=== PATIENT | male | born 1965 | race Caucasian/White ===

== ENCOUNTER 2017-04-25 14:01 | Emergency (ER) | payer SELFPAY ==
[~2017-04-25] VITALS: Ht 170.2 cm; Wt 77.1 kg
[2017-04-25 14:43] VITALS: BP 123/78
--- NOTE | 2017-04-25 14:46 | NUR ---
ROSSI IS 51 YO MALE BIB EMS FROM [facility] FOR POSSIBLE SEIZURE, AWAKE AND ALERT ON ARRIVAL. DENIES PAIN REFUSES CARE WANTS TO LEAVE.
[2017-04-25 14:48] VITALS: BP 123/78
--- NOTE | 2017-04-25 14:49 | NUR ---
PATIENT REFUSED CARE AND SIGNED DISCHARGE WITH ADVICE TO FOLLOW UP WITH PRIMARY MD.
== END 2017-04-25 14:49 | disposition home or self-care (01) ==
LOC: MED 14:01
DX: R56.9 Unspecified convulsions (principal); E78.00 Pure hypercholesterolemia, unspecified
CPT/HCPCS: 99283